=== PATIENT | female | born 1980 | race Hispanic/Latino ===

== ENCOUNTER 2018-09-13 13:45 | Emergency (ER) | payer MEDICAID ==
[2018-09-13 13:52] VITALS: RESP 18; TEMP 98.1
[2018-09-13 14:16] VITALS: O2SAT 98
--- NOTE | 2018-09-13 14:19 | ED PDOC ---
Arrival/HPI - General Chief Complaint: Chest Pain Time Seen by Provider: 09/13/18 13:48 - History of Present Illness Narrative History of Present Illness (Text): 09/13/18 14:20 A 38 year old female, current smoker 1/2 pack a week, with no significant past medical history presents to the emergency department complaining of chest pain since yesterday. Patient reports symptoms occurred late last night from 7-10pm. Patient notes she has had intermittent chest pain for the past year but pain worsened last night. Patient states she has not taken any medication for pain. Patient denies any recent travels or surgeries, taking any control, shortness of breath, fainting, chest pain, headache, dizziness, or any other complaints. No PMD Time/Duration: Other (yesterday) Symptom Onset: Gradual Symptom Course: Unchanged Activities at Onset: Light Context: Home Past Medical History - Provider Review Nursing Documentation Reviewed: Yes - Infectious Disease Hx of Infectious Diseases: None - Psychiatric Hx Substance Use: No - Surgical History Hx Section: Yes (x1) - Anesthesia Hx Anesthesia Reactions: No Hx Malignant Hyperthermia: No Family/Social History - Physician Review Nursing Documentation Reviewed: Yes Family/Social History: No Known Family HX Smoking Status: Smoker Currrent Status Unknown Hx Alcohol Use: No Hx Substance Use: No Allergies/Home Meds Allergies/Adverse Reactions: Allergies No Known Allergies Allergy (Verified 09/13/18 14:13) Review of Systems - Physician Review All systems were reviewed & negative as marked: Yes - Review of Systems Respiratory: absent: SOB Cardiovascular: Chest Pain Neurological: absent: Headache, Dizziness, Other (fainting) Physical Exam Vital Signs Reviewed: Yes Vital Signs Temp Pulse Resp BP Pulse Ox 09/13/18 13:46 98.1 F 104 H 18 139/86 100 Temperature: Afebrile Blood Pressure: Normal Pulse: Tachycardic Respiratory Rate: Normal Appearance: Positive for: Well-Appearing, Non-Toxic Pain Distress: Mild Mental Status: Positive for: Alert and Oriented X 3 - Systems Exam Head: Present: Atraumatic, Normocephalic Pupils: Present: PERRL Extroacular Muscles: Present: EOMI Conjunctiva: Present: Normal Mouth: Present: Moist Mucous Membranes Respiratory/Chest: Present: Clear to Auscultation, Good Air Exchange. No: Respiratory Distress, Accessory Muscle Use Cardiovascular: Present: Regular Rate and Rhythm, Normal S1, S2. No: Murmurs Abdomen: Present: Other (reproducable anterior chest wall pain). No: Tenderness, Distention Upper Extremity: Present: Normal Inspection. No: Cyanosis, Edema Lower Extremity: Present: Normal Inspection. No: Edema Neurological: Present: GCS=15, CN II-XII Intact, Speech Normal Skin: Present: Warm, Dry, Normal Color. No: Rashes Psychiatric: Present: Alert, Oriented x 3, Normal Insight, Normal Concentration Medical Decision Making ED Course and Treatment: 09/13/18 14:20 Impression: 38 year old female presenting to the emergency room complaining of chest pain. Differential Diagnosis included but are not limited to: - costochondritis - pericarditis - myocarditis - ACS - PE Plan: -- Labs -- CBC -- D Dimer -- Chest X-ray -- Urinalysis -- Reassess and disposition Prior Visits: Notes and results from previous visits were reviewed. Progress Notes: 09/13/18 15:31 On re-evaluation, patient is in no acute distress. I have discussed the results and plan with the patient, who expresses understanding. Patient in agreement with plan to be discharged home. Patient is stable for discharge. Patient was instructed to follow up with physician or return if symptoms worsen or new concerning symptoms arise. - Lab Interpretations I have reviewed the lab results: Yes - RAD Interpretation Narrative RAD Interpretations (Text): 09/13/18 16:17 EXAM: Chest X-ray DICTATED BY: Carlos Shay MD SIGNED BY: 09/13/18 [id number] IMPRESSION: No active disease Software Quality Manager: Radiologist - Scribe Statement The provider has reviewed the documentation as recorded by the Scribyue Lanza All medical record entries made by the Scribe were at my direction and personally dictated by me. I have reviewed the chart and agree that the record accurately reflects my personal performance of the history, physical exam, medical decision making, and the department course for this patient. I have also personally directed, reviewed, and agree with the discharge instructions and disposition. Disposition/Present on Arrival - Present on Arrival Any Indicators Present on Arrival: No History of DVT/PE: No History of Uncontrolled Diabetes: No Urinary Catheter: No History of Decub. Ulcer: No History Surgical Site Infection Following: None - Disposition Have Diagnosis and Disposition been Completed?: Yes Diagnosis: Chest wall pain, Costochondritis Disposition: HOME/ ROUTINE Disposition Time: 15:31 Patient Plan: Discharge Condition: STABLE Discharge Instructions (ExitCare): Costochondritis (DC), Chest Pain (ED) Print Language: TURKISH Additional Instructions: All medical record entries made by the Scribe were at my direction and personally dictated by me. I have reviewed the chart and agree that the record accurately reflects my personal performance of the history, physical exam, medical decision making, and the department course for this patient. I have also personally directed, reviewed, and agree with the discharge instructions and disposition. Please follow up with your PCP in 1-2 days Please follow up with the audit machine operator when possible Take Motrin every SIX hours with FOOD until symptoms resolve Prescriptions: Ibuprofen [Motrin] 600 mg PO Q6H #12 tab Referrals: Sandra Barba MD [Staff Provider] - Follow up with primary Sierra Estrada MD [Medical Doctor] - Follow up with primary [facility] [place] [Outside] - Follow up with primary Forms: [facility] ([place]ian), WORK NOTE
[2018-09-13 15:06] LABS: BASO # 0.02 K/mm3 (0.0-2.0); BASO % 0.3 % (0.0-3.0); EOS # 0.1 (0.0-0.7); EOS % 1.1 % (1.5-5.0); GRAN # 3.51 (1.4-6.5); HEMOGLOBIN 15.3 g/dL (12.0-16.0); LYMPH # 2.6 (1.2-3.4); LYMPH % 40.1 % (22.0-35.0); MEAN CELL VOLUME 91.4 fl (80.0-105.0); MEAN CORPUSCULAR HEMOGLOBIN 31.4 pg (25.0-35.0); MEAN CORPUSCULAR HGB CONC 34.3 g/dl (31.0-37.0); MEAN PLATELET VOLUME 10.1 fl (7.0-11.0); MONO # 0.3 (0.1-0.6); MONO % 4.5 % (1.0-6.0); RBC 4.88 10^6/uL (3.5-6.1); RED CELL DISTRIBUTION WIDTH 12.7 % (11.5-14.5); WHITE BLOOD COUNT 6.5 10^3/uL (4.5-11.0)
[2018-09-13 15:09] LABS: URINE APPEARANCE SLIGHT-CLOUDY (CLEAR); URINE BILIRUBIN NEGATIVE (NEGATIVE); URINE BLOOD LARGE (NEGATIVE); URINE COLOR YELLOW (YELLOW); URINE GLUCOSE (UA) NEGATIVE (NEGATIVE); URINE LEUKOCYTE ESTERASE NEGATIVE Leu/uL (NEGATIVE); URINE PROTEIN 30 mg/dL (<30 mg/dL); URINE UROBILINOGEN 0.2 E.U./dL (<1 E.U./dL)
[2018-09-13 15:13] LABS: ALB/GLOB RATIO 1.3 (1.1-1.8); ALBUMIN 4.7 g/dL (3.0-4.8); ALT/SGPT 33 U/L (7-56); AST/SGOT 27 U/L (14-36); BLOOD UREA NITROGEN 10 mg/dL (7-21); CALCIUM 10.1 mg/dL (8.4-10.5); GFR NON-AFRICAN AMERICAN > 60
[2018-09-13 15:16] LABS: URINE BACTERIA MOD /hpf
[2018-09-13 15:25] LABS: B-TYPE NATRIURETIC PEPTIDE 26.8 pg/mL (0-450); TROPONIN I < 0.01 ng/mL
[2018-09-13 15:51] VITALS: BP 121/79; PULSE 79
--- NOTE | 2018-09-13 16:07 | RAD ---
Date of service: 09/13/2018 HISTORY: chest pain COMPARISON: No prior. FINDINGS: LUNGS: Linear scar/atelectasis at left base. No acute infiltrate. PLEURA: No significant pleural effusion identified, no pneumothorax apparent. CARDIOVASCULAR: No aortic atherosclerotic calcification present. Normal cardiac size. No pulmonary vascular congestion. OSSEOUS STRUCTURES: No significant abnormalities. VISUALIZED UPPER ABDOMEN: Normal. OTHER FINDINGS: None. IMPRESSION: No active disease.
--- NOTE | 2018-09-15 07:52 | CARD ---
APPROVED REPORT Date of service: 09/13/2018 EKG Measurement Heart [id number] <Conclusion> Normal sinus rhythm Poor R wave progression Borderline ECG
== END 2018-09-13 15:35 | disposition home or self-care (01) ==
LOC: ED 13:45
DX: R07.89 Other chest pain (principal)
CPT/HCPCS: 71045; 80053; 81001; 81025; 83735; 83880; 84484; 85025; 85378; 93005; 96374; 99284; J1885

== ENCOUNTER 2018-11-25 09:37 | Outpatient (CLI) | payer MEDICAID | END 2018-11-25 09:38 | disposition home or self-care (01) | LOC: RAD 09:37 | DX: N61.0 Mastitis without abscess (principal) ==